=== PATIENT | male | born 1970 ===

== ENCOUNTER 2024-06-07 08:04 | Outpatient (AMB) | payer MEDICAID, SELFPAY ==
--- NOTE | 2024-06-07 08:24 | MHC.OFFVIS ---
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 Pt states the pain started years ago with no known injury. Pt states he has pain when walking and sitting.Patient has a history of injections in his lower back. Pt denies any previous back surgeries. Pharmaceutical Development Technician Required: Yes Pharmaceutical Development Technician Language: [place] Name: Rosey Headley ([id number]) Allergies No Known Allergies Allergy (Verified 06/07/24 08:24) Medication List - Last Reconciled 06/07/24 by Elo Samuel MD aspirin 81 mg PO DAILY atorvastatin 20 mg PO DAILY cholecalciferol (vitamin D3) 25 mcg PO DAILY furosemide 20 mg PO DAILY gabapentin 100 mg PO TID metoprolol succinate ER 50 mg PO DAILY omeprazole 20 mg PO QAM verapamil ER 240 mg PO DAILY HPI Comments Details: Referred right sided back pain. Chronic for 6-7 years ago since a work injury at a [employer]. He's had injections before, about 3 years ago, perhaps by [facility]. Last imaging 3 years ago as well. Last PT 3 years ago. Currently unemployed. He points to pain on right side going to right leg, down to knee and bottom of foot. Feels tingling/numbness on right leg/foot. He also mentions right knee feels that the bone moves sideways when he walks. Has not had imaging or injection for the knee. Review of Systems Const All systems reviewed & are unremarkable except as noted in HPI and below Physical Exam Constitutional: Patient appears to be in no acute distress, well nourished and well developed. Patient was appropriately conversant and oriented. Good historian. MSK: No specific abnormalities found on inspection of the spine and all extremities. Tender right SI joint. Lumbar ROM was full. Bilateral hip, knee and ankle ROM WNL. No ligamentous laxity or crepitance. No increased effusion. Slump sit positive right. FABERE test positive right. Tender right anterior knee without any effusion, warmth or redness. Positive patellar stress. Negative varus or valgus stress. Neurological: Some give-way weakness in right knee extension and hip flexion due to knee pain, 4+/5. Rest of MMT 5/5. Reflexes intact. Mao?s negative bilaterally. Babinski was down going bilaterally. Clonus was negative. Gait is antalgic without loss of balance. Results Reviewed Results Reviewed: I reviewed records from the following: PCP Assessment & Plan Assessment & Plan (1) Right lumbar radiculitis: Code(s): M54.16 - Radiculopathy, lumbar region Category: Medical (2) Right knee DJD: Code(s): M17.11 - Unilateral primary osteoarthritis, right knee Category: Medical Qualifiers: Osteoarthritis type: primary Qualified Code(s): M17.11 - Unilateral primary osteoarthritis, right knee Plan Chronic right lower back pain. Suspect history of degenerative disc. Possible SI joint dysfunction. More recent right knee pain. Possible patellofemoral versus DJD. Sending for lumbar and right knee x-rays today. Referring to PT to work on right knee and right lower leg. Will re-evaluate in 4 weeks, after PT and x-rays, see if we need further imaging. See if we need any injections. Assessment and plan discussed with patient, and patient was agreeable. All questions were answered thoroughly. Elo Samuel MD, BANDAR Board Certified, [place] Board of [employer] and Rehabilitation (ABPMR) Board Certified, [place] Board of Electrodiagnostic Medicine (ABEM) Orders: Orders XR knee RT 3V Today M17.11 - Unilateral primary osteoarthritis, right knee XR lumbar spine 2-3V Today M17.11 - Unilateral primary osteoarthritis, right knee, M54.16 - Radiculopathy, lumbar region, M54.9 - Dorsalgia, unspecified PT Evaluation and Treatment Today M17.11 - Unilateral primary osteoarthritis, right knee, M54.16 - Radiculopathy, lumbar region Coding Level of Care Code New Pt Level 4 (67938) Diagnoses Right lumbar radiculitis M54.16 Primary osteoarthritis of right knee M17.11 Osteoarthritis type: primary
== END 2024-06-07 09:37 | disposition home or self-care (01) ==
PROVIDERS: PCP Physician Assistant; Referring Provider Physician Assistant; Visit Provider Physical Medicine & Rehabilitation
DX: M54.16 Radiculopathy, lumbar region (principal); M17.11 Unilateral primary osteoarthritis, right knee
CPT/HCPCS: 99204

== ENCOUNTER 2024-06-07 08:04 | Outpatient (REF) | payer MEDICAID, SELFPAY ==
--- NOTE | ~2024-06-07 | XR_ITS ---
EXAMINATION: XR LUMBOSACRAL SPINE CLINICAL INFORMATION: Back pain. COMPARISON: None available. TECHNIQUE: Three views of the lumbosacral spine. FINDINGS: The lumbar lordosis is maintained. Minimal grade 1 retrolisthesis of L2 on L3. No acute fracture or subluxation. No loss of vertebral body or intervertebral disc height. Tiny multilevel anterior endplate osteophytes which are bridging within the lower thoracic spine. No concerning lytic or blastic osseous lesion. No abnormal soft tissue calcification. XR/XR lumbar spine 2-3V IMPRESSION: 1. Minimal grade 1 retrolisthesis of L2 on L3. 2. Mild multilevel degenerative disc disease with bridging osteophytes within the lower thoracic spine. Electronically signed by: Bharathi Leyva MD 07/10/2024 10:10 AM SAVANNA
--- NOTE | ~2024-06-07 | XR_ITS ---
EXAMINATION: XR KNEE, RIGHT CLINICAL INFORMATION: Right knee osteoarthritis. COMPARISON: None available. TECHNIQUE: 3 views of the right knee. FINDINGS: Minimal medial compartment joint space narrowing with tiny marginal osteophytes. Tiny patellofemoral compartment marginal osteophytes. No osseous erosion. No fracture or dislocation. No joint effusion. No abnormal soft tissue calcification. XR/XR knee RT 3V IMPRESSION: Minimal medial and patellofemoral compartment arthrosis. Electronically signed by: Bharathi Leyva MD 07/10/2024 10:10 AM SAVANNA
== END 2024-06-07 08:05 | disposition home or self-care (01) ==
LOC: HO.HOSX 08:04
PROVIDERS: PCP Physician Assistant; Visit Provider Physical Medicine & Rehabilitation
DX: M54.16 Radiculopathy, lumbar region (principal); M17.11 Unilateral primary osteoarthritis, right knee
CPT/HCPCS: 72100; 73562; 99202

== ENCOUNTER 2024-07-05 08:33 | Outpatient (AMB) | payer MEDICAID, SELFPAY ==
--- NOTE | 2024-07-05 08:45 | A.OFFVIS_ITS ---
Vital Signs 07/05/24 08:50 Height 5 ft 3 in Weight 265 lb BMI 46.9 Intake Visit Reasons: OV-RT lower back pain-follow up Intake Note: Maximo is a 53 year old male who presents today for a follow up visit of her lower back pain. Patient reports he is having daily pain. He says he has not started PT due to them not contacting him. He says he was told they would look for a place in [facility] for him to go and he would get a call. He has tried OTC medications however he has no relief. Sr. Manager Required: Yes Sr. Manager Language: Open Tenter Operator Name: [id number] Allergies No Known Allergies Allergy (Verified 07/05/24 08:49) Medication List - Last Reconciled 07/05/24 by Elo Samuel MD aspirin 81 mg PO DAILY atorvastatin 20 mg PO DAILY cholecalciferol (vitamin D3) 25 mcg PO DAILY furosemide 20 mg PO DAILY gabapentin 100 mg PO TID metoprolol succinate ER 50 mg PO DAILY omeprazole 20 mg PO QAM verapamil ER 240 mg PO DAILY HPI Comments Details: Referred right sided back pain. Chronic for 6-7 years ago since a work injury at a [email or web address]. He's had injections before, about 3 years ago, perhaps by [facility]. Last imaging 3 years ago as well. Last PT 3 years ago. Currently unemployed. He points to pain on right side going to right leg, down to knee and bottom of foot. Feels tingling/numbness on right leg/foot. He also mentions right knee feels that the bone moves sideways when he walks. Has not had imaging or injection for the knee. Was referred to PT but has not started yet. Back pain is the same. Can't stand prolonged standing or sitting. Radiates to right leg with tingling/numbness sensation. No bladder/bowel changes. [facility] Social History Alcohol intake: current Alcohol intake frequency: holidays/special occasions only Patient Tobacco Use Status: Current everyday Tobacco user Tobacco use type: Cigarette Current occupational status: unemployed Physical Exam Vital Signs: BMI result Body Mass Index 46.9 Constitutional: Patient appears to be in no acute distress, well nourished and well developed. Patient was appropriately conversant and oriented. Good historian. MSK: No specific abnormalities found on inspection of the spine and all extremities. SI joint and piriformis are not tender today. His tenderness today is more on lumbar paraspinals right side. Lumbar ROM was full. Bilateral hip, knee and ankle ROM WNL. No ligamentous laxity or crepitance. No increased effusion. Slump sit positive right. FABERE test positive right. Neurological: Some give-way weakness in right knee extension and hip flexion due to knee pain, 4+/5. Rest of MMT 5/5. Reflexes intact. Mao?s negative bilaterally. Babinski was down going bilaterally. Clonus was negative. Gait is antalgic without loss of balance. Results Reviewed Results Reviewed: Lumbar x-rays have not been officially read. Reviewed images with patient. Question disc space narrowing L5-S1. Anterior endplate spurs noted especially T11-12. Knee x-ray also has not been officially read. Reviewed images with patient. Joint space preserved. I reviewed records from the following: PCP Assessment & Plan Assessment & Plan (1) Right lumbar radiculitis: Code(s): M54.16 - Radiculopathy, lumbar region Category: Medical (2) Sacroiliac joint dysfunction of right side: Code(s): M53.3 - Sacrococcygeal disorders, not elsewhere classified Category: Medical Plan Chronic recurrent right-sided back pain, question lumbar radiculitis versus SI joint dysfunction. Start physical therapy. Reordered and gave patient number to call. Official x-ray reading pending. If radiologist call L5-S1 disc space as narrow, then we will consider ordering a lumbar MRI for further evaluation of disc herniation. Assessment and plan discussed with patient, and patient was agreeable. All questions were answered thoroughly. Follow up 4-6 weeks or after PT. Elo Samuel MD, BANDAR Board Certified, [place] Board of [employer] Medicine and Rehabilitation (ABPMR) Board Certified, [place] Board [employer] Electrodiagnostic [employer] (ABEM) Coding Level of Care Code Est Pt Level 4 (70894) Diagnoses Right lumbar radiculitis M54.16 Sacroiliac joint dysfunction of right side M53.3
[2024-07-05 08:50] VITALS: BMI 46.9
== END 2024-07-05 09:23 | disposition home or self-care (01) ==
LOC: HO.HOS 08:33
PROVIDERS: PCP Physician Assistant; Visit Provider Physical Medicine & Rehabilitation
DX: M54.16 Radiculopathy, lumbar region (principal); M53.3 Sacrococcygeal disorders, not elsewhere classified
CPT/HCPCS: 99213

== ENCOUNTER → 2024-07-05 08:33 | Outpatient (BNVA) | payer MEDICAID, SELFPAY | PROVIDERS: PCP Physician Assistant; Visit Provider Physical Medicine & Rehabilitation | DX: M54.16 Radiculopathy, lumbar region (principal); M53.3 Sacrococcygeal disorders, not elsewhere classified | CPT/HCPCS: 99212 ==